=== PATIENT | male | born 1975 | race African-American/Black ===

== ENCOUNTER 2019-06-02 08:18 | Emergency (ER) | payer OTHER ==
[~2019-06-02] VITALS: Ht 175.3 cm; Wt 136.1 kg
[2019-06-02] MEDS ORDERED: IV NORMAL SALINE 1000ML BAG 1,000 ML IV SCH (09:10)
[2019-06-02] MEDS ORDERED: KETOROLAC 30 MG/ML VIAL. IV ONE (09:15)
[2019-06-02] MEDS ORDERED: ONDANSETRON PF 4 MG/2 ML VIAL. IV ONE (09:15)
[2019-06-02 09:16] LABS: BASO # 0.1 x10^3/uL (0.0-0.2); BASO % 1 % (0-3); EOS % 0 % (0-3); HEMATOCRIT 51.6 % (39.0-53.0); HEMOGLOBIN 17.6 g/dL (13.0-17.5); LYMPH # 1.9 x10^3/uL (1.0-4.8); LYMPH % 21 % (24-48); MEAN CORPUSCULAR HEMOGLOBIN 29 pg (25-35); MEAN CORPUSCULAR HGB CONC 34 g/dL (31-37); MEAN CORPUSCULAR VOLUME 84 fL (79-100); MONO # 1.1 x10^3/uL (0.0-1.1); MONO % 12 % (0-9); NEUT # 5.9 x10^3/uL (1.8-7.7); NEUT % 66 % (31-73); PLATELET COUNT 198 x10^3/uL (140-400); RED BLOOD COUNT 6.17 x10^6/uL (4.30-5.70); WHITE BLOOD COUNT 8.9 x10^3/uL (4.0-11.0)
[2019-06-02 09:30] LABS: BILIRUBIN,URINE NEGATIVE (NEG); CLARITY,URINE CLEAR; COLOR,URINE YELLOW; NITRITE,URINE NEGATIVE (NEG); PH,URINE 8.5; PROTEIN,URINE 30 mg/dL (NEG-TRACE)
[2019-06-02 09:31] LABS: CALCIUM 9.5 mg/dL (8.5-10.1); CREATININE 1.4 mg/dL (0.7-1.3); GFR 66.6; POTASSIUM 4.3 mmol/L (3.5-5.1)
[2019-06-02 09:36] LABS: ALBUMIN 4.3 g/dL (3.4-5.0); TOTAL BILIRUBIN 1.4 mg/dL (0.2-1.0); TOTAL PROTEIN 8.4 g/dL (6.4-8.2)
[2019-06-02 09:37] LABS: BACTERIA,URINE 0 /HPF (0-FEW); RBC,URINE 20-40 /HPF (0-2); WBC,URINE 0 /HPF (0-4)
[2019-06-02 09:38] LABS: SQUAMOUS EPITHELIAL CELL,UR MOD /LPF
--- NOTE | 2019-06-02 09:59 | RAD ---
CT Abdomen and Pelvis without contrast History: Left flank pain Technique: Noncontrast CT imaging was performed of the abdomen and pelvis. Multiplanar images are reviewed. Exposure: One or more of the following individualized dose reduction techniques were utilized for this examination: 1. Automated exposure control 2. Adjustment of the mA and/or kV according to patient size 3. Use of iterative reconstruction technique. Comparison: None Findings: There is a 0.7 cm calculus in the mid left ureter at the L5-S1 level. There is mild left hydroureter, mild left pelvocaliectasis. There is 0.4 cm inferior left renal calculus. There is no right renal calculus. Accurate evaluation of abdominal visceral organs is limited without intravenous contrast. There is no obvious abnormality of the spleen, liver, or pancreas. There is mild hepatic steatosis. There is a small left adrenal nodule with density characteristics suggestive of adenoma, measures about 0.7 cm. Gallbladder is present without obvious intraluminal abnormality by CT. Accurate evaluation of bowel is limited without oral contrast. There is no significant free air, free fluid, bowel dilatation. Appendix caliber is upper limits of normal 0.6 cm, no adjacent inflammatory change. There is fat in the right inguinal canal, no bowel. There are some nonspecific inguinal nodes bilaterally, largest on the left about 1.8 cm short axis dimension, largest on the right about 1.7 cm short axis dimension. 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 Impression: 1. There is a 0.7 cm calculus in the mid left ureter, mild left hydroureter and mild left pelvocaliectasis. There is inferior left renal calculus. 2. There are nonspecific somewhat enlarged bilateral inguinal nodes, clinical follow-up advised. 3. There is mild hepatic steatosis. 4. There is fat in the right inguinal canal, no bowel. Electronically signed by: Guero Garcia MD (06/02/2019 9:56 AM) [id number]
--- NOTE | 2019-06-02 10:09 | PHYS DOC ---
Past Medical History Past Medical History: Other Additional Past Medical Histor: SLEEP APNEA Past Surgical History: Other Additional Past Surgical Histo: HERNIA REPAIR Alcohol Use: Rarely Drug Use: None Adult General Chief Complaint Chief Complaint: GROIN PAIN HPI HPI Patient is a 43 year old male who presents with complaining of abdominal pain. Patient complaining of intermittent episodes of gradual onset of left lower quadrant and left flank with radiation left groin pain since yesterday as a sharp pain associated with nausea. Patient rated his pain 8/10 and denies urinary symptoms, fever and chills, chest pain and shortness of breath, history of the same problem. Patient states he had cold symptom for the last few days without fever. Review of Systems Review of Systems Constitutional: Denies fever or chills [] Eyes: Denies change in visual acuity, redness, or eye pain [] HENT: Reports nasal congestion and sore throat Respiratory: Denies cough or shortness of breath [] Cardiovascular: No additional information not addressed in HPI [] GI: Reports abdominal pain, nausea, denies vomiting, bloody stools or diarrhea [] : Denies dysuria or hematuria [] Musculoskeletal: Denies back pain or joint pain [] Integument: Denies rash or skin lesions [] Neurologic: Denies headache, focal weakness or sensory changes [] Endocrine: Denies polyuria or polydipsia [] All other systems were reviewed and found to be within normal limits, except as documented in this note. Current Medications Current Medications Current Medications Medications (Trade) Dose Ordered Sig/Ted Start Time Stop Time Status Last Admin Dose Admin Ketorolac Tromethamine (Toradol 30mg Vial) 30 mg 1X ONCE 06/02/19 09:15 06/02/19 09:16 DC 06/02/19 09:27 30 MG Ondansetron HCl (Zofran) 4 mg 1X ONCE 06/02/19 09:15 06/02/19 09:16 DC 06/02/19 09:27 4 MG Sodium Chloride 1,000 ml @ 1,000 mls/hr 1X ONCE 06/02/19 10:45 06/02/19 11:27 DC 06/02/19 10:45 1,000 MLS/HR Tamsulosin HCl (Flomax) 0.4 mg 1X ONCE 06/02/19 10:45 06/02/19 10:46 DC 06/02/19 10:45 0.4 MG Allergies Allergies Allergies Coded Allergies Type Severity Reaction Last Updated Verified No Known Drug Allergies 06/02/19 No Physical Exam Physical Exam Constitutional: Well developed, well nourished, mild distress, non-toxic appearance, morbidly obese. [] HENT: Normocephalic, atraumatic. Eyes: PERRLA, EOMI, conjunctiva normal, no discharge. [] Neck: Normal range of motion, no tenderness, supple, no stridor. [] Cardiovascular:Heart rate regular rhythm, no murmur [] Lungs & Thorax: Bilateral breath sounds clear to auscultation [] Abdomen: Bowel sounds normal, soft, no tenderness, no masses, no pulsatile masses. [] Skin: Warm, dry, no erythema, no rash. [] Back: No tenderness, no CVA tenderness. [] Extremities: No tenderness, no cyanosis, no clubbing, ROM intact, no edema. [] Neurologic: Alert and oriented X 3, no focal deficits noted. [] Psychologic: Affect normal, judgement normal, mood normal. [] Current Patient Data Vital Signs Vital Signs Date Time Temp Pulse Resp B/P (MAP) Pulse Ox O2 Delivery O2 Flow Rate FiO2 06/02/19 11:06 72 18 146/86 (106) 95 Room Air 06/02/19 08:38 97.9 97.9 Lab Values Laboratory Tests Test 06/02/19 08:30 06/02/19 08:55 White Blood Count 8.9 x10^3/uL (4.0-11.0) Red Blood Count 6.17 x10^6/uL (4.30-5.70) H Hemoglobin 17.6 g/dL (13.0-17.5) H Hematocrit 51.6 % (39.0-53.0) Mean Corpuscular Volume 84 fL (79-100) Mean Corpuscular Hemoglobin 29 pg (25-35) Mean Corpuscular Hemoglobin Concent 34 g/dL (31-37) Red Cell Distribution Width 14.0 % (11.5-14.5) Platelet Count 198 x10^3/uL (140-400) Neutrophils (%) (Auto) 66 % (31-73) Lymphocytes (%) (Auto) 21 % (24-48) L Monocytes (%) (Auto) 12 % (0-9) H Eosinophils (%) (Auto) 0 % (0-3) Basophils (%) (Auto) 1 % (0-3) Neutrophils # (Auto) 5.9 x10^3/uL (1.8-7.7) Lymphocytes # (Auto) 1.9 x10^3/uL (1.0-4.8) Monocytes # (Auto) 1.1 x10^3/uL (0.0-1.1) Eosinophils # (Auto) 0.0 x10^3/uL (0.0-0.7) Basophils # (Auto) 0.1 x10^3/uL (0.0-0.2) Sodium Level 141 mmol/L (136-145) Potassium Level 4.3 mmol/L (3.5-5.1) Chloride Level 102 mmol/L (98-107) Carbon Dioxide Level 29 mmol/L (21-32) Anion Gap 10 (6-14) Blood Urea Nitrogen 11 mg/dL (8-26) Creatinine 1.4 mg/dL (0.7-1.3) H Estimated GFR (Cockcroft-Gault) 66.6 BUN/Creatinine Ratio 8 (6-20) Glucose Level 148 mg/dL (70-99) H Calcium Level 9.5 mg/dL (8.5-10.1) Total Bilirubin 1.4 mg/dL (0.2-1.0) H Aspartate Amino Transferase (AST) 26 U/L (15-37) Alanine Aminotransferase (ALT) 41 U/L (16-63) Alkaline Phosphatase 82 U/L (46-116) Total Protein 8.4 g/dL (6.4-8.2) H Albumin 4.3 g/dL (3.4-5.0) Albumin/Globulin Ratio 1.0 (1.0-1.7) Lipase 61 U/L (73-393) L Urine Collection Type Unknown Urine Color Yellow Urine Clarity Clear Urine pH 8.5 Urine Specific [place] 1.020 Urine Protein 30 mg/dL (NEG-TRACE) Urine Glucose (UA) Negative mg/dL (NEG) Urine Ketones (Stick) Negative mg/dL (NEG) Urine Blood Large (NEG) Urine Nitrite Negative (NEG) Urine Bilirubin Negative (NEG) Urine Urobilinogen Dipstick 1.0 mg/dL (0.2 mg/dL) Urine Leukocyte Esterase Negative (NEG) Urine RBC 20-40 /HPF (0-2) Urine WBC 0 /HPF (0-4) Urine Squamous Epithelial Cells Mod /LPF Urine Bacteria 0 /HPF (0-FEW) Urine Mucus Mod /LPF Laboratory Tests 06/02/19 08:30 Laboratory Tests 06/02/19 08:30 EKG EKG [] Radiology/Procedures Radiology/Procedures [][facility] [address] [place] [address] IMAGING REPORT Signed PATIENT: KEN SNYDER ACCOUNT: [id number] : 1975 LOCATION: ER AGE: 43 SEX: M EXAM STATUS: REG ER ORD. PHYSICIAN: RONDA SNOW MD REASON: left flank pain PROCEDURE: CT ABDOMEN PELVIS WO CONTRAST CT Abdomen and Pelvis without contrast History: Left flank pain Technique: Noncontrast CT imaging was performed of the abdomen and pelvis. Multiplanar images are reviewed. Exposure: One or more of the following individualized dose reduction techniques were utilized for this examination: 1. Automated exposure control 2. Adjustment of the mA and/or kV according to patient size 3. Use of iterative reconstruction technique. Comparison: None Findings: There is a 0.7 cm calculus in the mid left ureter at the L5-S1 level. There is mild left hydroureter, mild left pelvocaliectasis. There is 0.4 cm inferior left renal calculus. There is no right renal calculus. Accurate evaluation of abdominal visceral organs is limited without intravenous contrast. There is no obvious abnormality of the spleen, liver, or pancreas. There is mild hepatic steatosis. There is a small left adrenal nodule with density characteristics suggestive of adenoma, measures about 0.7 cm. Gallbladder is present without obvious intraluminal abnormality by CT. Accurate evaluation of bowel is limited without oral contrast. There is no significant free air, free fluid, bowel dilatation. Appendix caliber is upper limits of normal 0.6 cm, no adjacent inflammatory change. There is fat in the right inguinal canal, no bowel. There are some nonspecific inguinal nodes bilaterally, largest on the left about 1.8 cm short axis dimension, largest on the right about 1.7 cm short axis dimension. 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 Impression: 1. There is a 0.7 cm calculus in the mid left ureter, mild left hydroureter and mild left pelvocaliectasis. There is inferior left renal calculus. 2. There are nonspecific somewhat enlarged bilateral inguinal nodes, clinical follow-up advised. 3. There is mild hepatic steatosis. 4. There is fat in the right inguinal canal, no bowel. Electronically signed by: Magda Juarez MD (06/02/2019 9:56 AM) [email or web address] DICTATED and SIGNED BY: MAGDA JUAREZ MD DATE: 06/02/19 0956 Course & Med Decision Making Course & Med Decision Making Pertinent Labs and Imaging studies reviewed. (See chart for details) Evaluation of patient in ER showed 43-year-old male patient with complaining of left lower quadrant and flank pain. Patient has guarding of left lower quadrant without CVA tenderness. Labs showed hematuria and mild elevation of creatinine. CT of abdomen and pelvis showed ureterolithiasis. Patient felt better with treatment in ER and was advised to follow-up with urologist at [facility]. I've spoken with the patient and/or caregivers. I've explained the patient's condition, diagnosis and treatment plan based on information available to me at this time. I've answered the patient's and/or caregivers questions and addressed any concerns. The patient and/or caregivers have a good understanding the patient's diagnosis, condition and treatment plan as can be expected at this point. Vital signs have been stabilized. The patient's condition is stable for discharge from the emergency department. The patient will pursue further outpatient evaluation with her primary care provider or other designated consulting physician as outlined in the discharge instructions. Patient and/or caregivers are agreeable to this plan of care and follow-up instructions have been explained in detail. The patient and/or caregivers have received these instructions in written format and expressed understanding of these discharge instructions. The patient and her caregivers are aware that if any significant change in condition or worsening of symptoms should prompt him to immediately return to this of the closest emergency department. If an emergent department is not readily available I would encourage him to call 911. Madhu Disclaimer Dragon Disclaimer This electronic medical record was generated, in whole or in part, using a voice recognition dictation system. Departure Departure Impression: Primary Impression: Renal colic on left side Additional Impressions: Ureterolithiasis Renal insufficiency Morbid obesity with BMI of 40.0-44.9, adult Disposition: 01 HOME, SELF-CARE Condition: IMPROVED Referrals: JEB WILSON MD (PCP) Patient Instructions: Diet for Kidney Stones, Kidney Stones Additional Instructions: Drink plenty of liquids Follow-up with your primary care physician in 3-5 days Return to ER if not getting better Strain all of your urine Follow-up with [facility] urologist in one or 2 days Scripts Hydrocodone/Apap 5-325 (NORCO 5-325 TABLET) 1 Each Tablet 1 TAB PO Q4-6HRS for pain, #14 TAB Prov: RONDA SNOW MD 06/02/19 Tamsulosin Hcl (FLOMAX) 0.4 Mg Cap.er.24h 1 CAP PO DAILY, #14 CAP 11 Refills Prov: RONDA SNOW MD 06/02/19 Ondansetron Hcl (ZOFRAN) 4 Mg Tablet 1 TAB PO PRN Q6-8HRS for nausea, #12 TAB Prov: RONDA SNOW MD 06/02/19 Problem Qualifiers RONDA SNOW MD Jun 02, 2019 10:09
[2019-06-02] MEDS ORDERED: TAMSULOSIN 0.4 MG CAP.ER.24H. PO ONE (10:45)
[2019-06-02] MEDS ORDERED: TAMS0.4C97 PO (10:45)
[2019-06-02] MEDS ORDERED: IV NORMAL SALINE 1000ML BAG 1,000 ML IV ONE (10:45)
[2019-06-02] MEDS ORDERED: ONDA4TAB7 PO (10:45)
[2019-06-02] MEDS ORDERED: HYDR-3164 PO (10:45)
[2019-06-02 11:06] VITALS: BP 146/86
== END 2019-06-02 11:27 | disposition home or self-care (01) ==
LOC: ER 08:18
DX: N28.9 Disorder of kidney and ureter, unspecified (principal); N20.2 Calculus of kidney with calculus of ureter; E66.01 Morbid (severe) obesity due to excess calories; Z68.41 Body mass index [BMI] 40.0-44.9, adult
CPT/HCPCS: 36415; 74176; 80053; 81001; 83690; 85025; 96374; 96375; 99285; J1885; J2405; J7030

== ENCOUNTER 2021-07-17 08:30 | Emergency (ER) | payer OTHER ==
[~2021-07-17] VITALS: Ht 177.8 cm; Wt 126.5 kg
[~2021-07-17 08:30] MED LIST: HYDR-3164 PO; ONDA4TAB7 PO; TAMS0.4C97 PO
--- NOTE | 2021-07-17 08:47 | PHYS DOC ---
Past Medical History Past Medical History: Hypertension, Other Additional Past Medical Histor: SLEEP APNEA Past Surgical History: Other Additional Past Surgical Histo: HERNIA REPAIR Smoking Status: Never Smoker Alcohol Use: Rarely Drug Use: None General Adult EDM: Chief Complaint: FLANK PAIN HPI: HPI: Patient is a 45-year-old male presenting for left flank pain. Onset was a couple days ago without any known inciting event, trauma, ingestion, exposure or other mechanism of injury. Nothing known makes better or worse. Pain is sharp and focal to left flank but is sometimes radiated to his pubic region. Timing of symptoms has been constant since onset and interrupted sleep last couple of nights. Reports he could not take the pain prompting him to come in for evaluation. Does admit new onset of urinary hesitancy when urinating and slight dysuria. Has prior history of left-sided kidney stone which she states feels similar to current episode today, no other intra-abdominal abnormality or surgeries in the past. Admits history of hypertension for which she is on hydrochlorothiazide, discloses he has not taken his daily medication in the past 3 days Review of Systems: Review of Systems: Fourteen body systems of review of systems have been reviewed. See HPI for pertinent positives and negative responses, other monsalve all other systems are negative, non-pertinent or non-contributory Heart Score: C/O Chest Pain: No Risk Factors: Risk Factors: DM, Current or recent (<one month) smoker, HTN, HLP, family history of CAD, obesity. Risk Scores: Score 0 - 3: 2.5% MACE over next 6 weeks - Discharge Home Score 4 - 6: 20.3% MACE over next 6 weeks - Admit for Clinical Observation Score 7 - 10: 72.7% MACE over next 6 weeks - Early Invasive Strategies Allergies: Allergies: Allergies Coded Allergies Type Severity Reaction Last Updated Verified No Known Drug Allergies 06/02/19 No Physical Exam: PE: Constitutional: Well developed, well nourished, no acute distress, non-toxic appearance. HENT: Normocephalic, atraumatic, bilateral external ears normal, oropharynx moist, no oral exudates, nose normal. Eyes: PERRLA, EOMI, conjunctiva normal, no discharge. Neck: Normal range of motion, no tenderness, supple, no stridor. Cardiovascular: Heart rate regular, sinus rhythm, no murmurs rubs or gallops Lungs & Thorax: Bilateral breath sounds clear to auscultation Abdomen: Bowel sounds normal, soft, no tenderness, no masses, no pulsatile masses. Nonsurgical abdomen, no peritoneal signs Skin: Warm, dry, no erythema, no rash. Back: No tenderness, left CVA tenderness. Extremities: No tenderness, no cyanosis, no clubbing, ROM intact, no edema. Neurologic: Alert and oriented X 3, grossly normal motor & sensory function, no focal deficits noted. Psychologic: Anxious affect and mood Current Patient Data: Labs: Laboratory Tests Test 07/17/21 08:45 07/17/21 08:53 Urine Collection Type Unknown Urine Color Yellow Urine Clarity Clear Urine pH 5.5 Urine Specific [place] 1.020 Urine Protein 30 mg/dL Urine Glucose (UA) Negative mg/dL Urine Ketones (Stick) 40 mg/dL Urine Blood Negative Urine Nitrite Negative Urine Bilirubin Negative Urine Urobilinogen Dipstick 1.0 mg/dL Urine Leukocyte Esterase Negative Urine RBC 0 /HPF Urine WBC 0 /HPF Urine Squamous Epithelial Cells Mod /LPF Urine Bacteria Few /HPF Urine Mucus Slight /LPF White Blood Count 3.1 x10^3/uL Red Blood Count 6.27 x10^6/uL Hemoglobin 17.7 g/dL Hematocrit 51.9 % Mean Corpuscular Volume 83 fL Mean Corpuscular Hemoglobin 28 pg Mean Corpuscular Hemoglobin Concent 34 g/dL Red Cell Distribution Width 14.5 % Platelet Count 137 x10^3/uL Neutrophils (%) (Auto) 38 % Lymphocytes (%) (Auto) 44 % Monocytes (%) (Auto) 17 % Eosinophils (%) (Auto) 0 % Basophils (%) (Auto) 1 % Neutrophils # (Auto) 1.2 x10^3/uL Lymphocytes # (Auto) 1.4 x10^3/uL Monocytes # (Auto) 0.5 x10^3/uL Eosinophils # (Auto) 0.0 x10^3/uL Basophils # (Auto) 0.0 x10^3/uL Sodium Level 140 mmol/L Potassium Level 4.8 mmol/L Chloride Level 99 mmol/L Carbon Dioxide Level 31 mmol/L Anion Gap 10 Blood Urea Nitrogen 14 mg/dL Creatinine 1.3 mg/dL Estimated GFR (Cockcroft-Gault) 71.9 Glucose Level 103 mg/dL Calcium Level 8.5 mg/dL Current Medications Medications (Trade) Dose Ordered Sig/Ted Route PRN Reason Start Time Stop Time Status Last Admin Dose Admin Hydrochlorothiazide (Microzide) 12.5 mg 1X ONCE PO 07/17/21 09:00 07/17/21 09:01 DC 07/17/21 08:59 Sodium Chloride 1,000 ml @ 1,000 mls/hr 1X ONCE IV 07/17/21 09:45 07/17/21 10:44 DC 07/17/21 10:09 Morphine Sulfate (Morphine Sulfate) 4 mg 1X ONCE IVP 07/17/21 09:45 07/17/21 09:50 DC 07/17/21 10:10 Azithromycin (Zithromax) 500 mg 1X ONCE PO 07/17/21 09:45 07/17/21 09:50 DC 07/17/21 10:08 Vital Signs: Vital Signs Date Time Temp Pulse Resp B/P (MAP) Pulse Ox O2 Delivery O2 Flow Rate FiO2 07/17/21 08:40 98.9 90 16 183/87 (119) 99 Room Air 98.9 Vital Signs Date Time Temp Pulse Resp B/P (MAP) Pulse Ox O2 Delivery O2 Flow Rate FiO2 07/17/21 12:50 16 95 07/17/21 08:40 98.9 90 183/87 (119) Room Air 98.9 EKG: EKG: [] Radiology/Procedures: Radiology/Procedures: EXAM: CT ABDOMEN/PELVIS WITHOUT CONTRAST. HISTORY: Left flank pain. TECHNIQUE: Computed tomography of the abdomen and pelvis was performed without intravenous contrast. One or more of the following individualized dose reduction techniques were utilized for this examination: 1. Automated exposure control. 2. Adjustment of the mA and/or kV according to patient size. 3. Use of iterative reconstruction technique. COMPARISON: 06/02/2019. FINDINGS: Lung windows through the visualized portions of the bases reveal multifocal nodular groundglass infiltrates. Bone windows reveal no suspicious le sions. A 13 mm cyst in the left renal upper pole is stable and likely benign. Calculi in the left renal lower pole measure up to 6 mm. There are no right renal calculi. There are no ureteral calculi. The liver, pancreas, adrenal glands, spleen and gallbladder are unremarkable without contrast. There are no pathologically enlarged lymph nodes. The appendix is not inflamed. A small right inguinal hernia contains only fat. There is no small bowel obstruction. IMPRESSION: 1. Multifocal groundglass infiltrates in the bases consistent with atypical pneumonia. 2. Left renal calculi measure up to 6 mm. No ureteral calculi. 3. Small right inguinal hernia containing only fat. Electronically signed by: Rylie Cheng MD (07/17/2021 9:23 AM) [id number] Course & Med Decision Making: Course & Med Decision Making Hypertensive otherwise ABCs unremarkable HPI physical exam and comprehensive ER work-up nonconcerning for any emergent or surgical issues Patient unvaccinated with concerning CT imaging showing atypical pneumonia, joint decision to treat with antibiotics and tested for COVID-19 in an unvaccinated individual, PCR Covid pending with appropriate self quarantine instructions advised I disclosed all ER work-up findings today, I reported low white count which should prompt further outpatient work-up. This is new for patient, advised him he should be worked up in outpatient setting for tensional immunocompromising conditions such as HIV Also discussed he had left renal calculi, unlikely cause of pain as it is still embedded within the kidney Patient reported near the end of visit that he has been depressed, cites increased social stressors. No HI or SI, has lots of forward thinking but does admit he has not been as tearful as usual. Stressed need for PCP follow-up to establish with behavioral health biter Ultimately strict return precautions discussed and understood by patient, all questions and concerns addressed prior to ER departure Madhu Disclaimer: Madhu Disclaimer: This electronic medical record was generated, in whole or in part, using a voice recognition dictation system. Departure Departure Impression: Primary Impression: Atypical pneumonia Additional Impressions: Leukopenia Depressed mood Disposition: 01 HOME / SELF CARE / HOMELESS Condition: STABLE Referrals: JEB WILSON MD (PCP) Additional Instructions: As discussed prior to ER departure, your vitals were concerning for hyperte nsion, your physical exam and comprehensive ER work-up were concerning for atypical pneumonia and low white blood cell count. As disclosed there is no indication for further diagnostic work-up. You were given a dose of azithromycin which should be continued in outpatient setting to completion. This needs to be followed up in outpatient setting with your primary care provider pending you are negative for Covid for which you were tested for today with PCR results pending. Your white blood cell count is also low. Many things can cause this. Acute infection could be contributory as are other conditions that might be immunocompromising in nature and so, close outpatient follow-up with your primary care provider for this condition should also be discussed. If any concerning signs or symptoms present prior to outpatient follow-up please do not hesitate to come back for repeat evaluation. It was a pleasure to take care of you and I wish you the best going forward Scripts Azithromycin (AZITHROMYCIN TABLET) 250 Mg Tablet 250 MG PO DAILY for ANTI-BIOTIC, #4 TAB 0 Refills Prov: NICOLAS WYNN DO 07/17/21 NICOLAS WYNN DO Jul 17, 2021 08:47
[2021-07-17] MEDS ORDERED: hydroCHLOROthiazide 12.5 MG CAPSULE PO ONE (09:00)
[2021-07-17 09:10] LABS: BASO % 1 % (0-3); EOS % 0 % (0-3); HEMATOCRIT 51.9 % (39.0-53.0); HEMOGLOBIN 17.7 g/dL (13.0-17.5); LYMPH # 1.4 x10^3/uL (1.0-4.8); LYMPH % 44 % (24-48); MEAN CORPUSCULAR HEMOGLOBIN 28 pg (25-35); MEAN CORPUSCULAR HGB CONC 34 g/dL (31-37); MEAN CORPUSCULAR VOLUME 83 fL (79-100); MONO # 0.5 x10^3/uL (0.0-1.1); MONO % 17 % (0-9); NEUT # 1.2 x10^3/uL (1.8-7.7); NEUT % 38 % (31-73); PLATELET COUNT 137 x10^3/uL (140-400); RED BLOOD COUNT 6.27 x10^6/uL (4.30-5.70); RED CELL DISTRIBUTION WIDTH 14.5 % (11.5-14.5); WHITE BLOOD COUNT 3.1 x10^3/uL (4.0-11.0)
[2021-07-17 09:17] LABS: CALCIUM 8.5 mg/dL (8.5-10.1); CREATININE 1.3 mg/dL (0.7-1.3); GFR 71.9; POTASSIUM 4.8 mmol/L (3.5-5.1)
--- NOTE | 2021-07-17 09:26 | RAD ---
EXAM: CT ABDOMEN/PELVIS WITHOUT CONTRAST. HISTORY: Left flank pain. TECHNIQUE: Computed tomography of the abdomen and pelvis was performed without intravenous contrast. One or more of the following individualized dose reduction techniques were utilized for this examinat ion: 1. Automated exposure control. 2. Adjustment of the mA and/or kV according to patient size. 3. Use of iterative reconstruction technique. COMPARISON: 06/02/2019. FINDINGS: Lung windows through the visualized portions of the bases reveal multifocal nodular groundg lass infiltrates. Bone windows reveal no suspicious lesions. A 13 mm cyst in the left renal upper pole is stable and likely benign. Calculi in the left renal lowe r pole measure up to 6 mm. There are no right renal calculi. There are no ureteral calculi. The liver, pancreas, adrenal glands, spleen and gallbladder are unremarkable without contrast. There are no pathologically enlarged lymph nodes. The appendix is not inflamed. A small right inguinal hernia contains only fat. There is no small marycruz l obstruction. IMPRESSION: 1. Multifocal groundglass infiltrates in the bases consistent with atypical pneumonia. 2. Left renal calculi measure up to 6 mm. No ureteral calculi. 3. Small right inguinal hernia containing only fat. Electronically signed by: Rylie Cheng MD (07/17/2021 9:23 AM) [id number]
[2021-07-17] MEDS ORDERED: IV NORMAL SALINE 1000ML BAG 1,000 ML IV ONE (09:45)
[2021-07-17] MEDS ORDERED: AZITHROMYCIN 250 MG TABLET. PO ONE (09:45)
[2021-07-17] MEDS ORDERED: MORPHINE SULFATE 4 MG/ML INJ. IVP ONE (09:45)
[2021-07-17] MEDS ORDERED: AZIT250T6 PO (13:16)
[2021-07-17 13:30] LABS: CLARITY,URINE CLEAR; COLOR,URINE YELLOW
[2021-07-17 13:31] LABS: BACTERIA,URINE FEW /HPF (0-FEW); BILIRUBIN,URINE NEGATIVE (NEG); NITRITE,URINE NEGATIVE (NEG); PH,URINE 5.5 (<5.0-8.0); PROTEIN,URINE 30 mg/dL (NEG-TRACE); RBC,URINE 0 /HPF (0-2); WBC,URINE 0 /HPF (0-4)
== END 2021-07-17 13:42 | disposition home or self-care (01) ==
LOC: ER 08:30
DX: J18.9 Pneumonia, unspecified organism (principal); D72.819 Decreased white blood cell count, unspecified; F32.A Depression, unspecified; I10 Essential (primary) hypertension; Z98.890 Other specified postprocedural states
CPT/HCPCS: 36415; 74176; 80048; 81001; 85025; 96361; 96374; 99284; J2270; J7030